=== PATIENT | female | born 1960 | race Caucasian/White ===

== ENCOUNTER → 2018-10-29 | Outpatient (CLI) | payer OTHER ==
--- NOTE | 2018-10-29 16:39 | 2DMMODE ---
[facility] [place] [address] 2 D/M-MODE ECHOCARDIOGRAM Name: NANCYKADEN Room #: [facility]#: [id number] ������������� Admission: 10/29/18 ������������� Attend Phys: Physician not on s Discharge: ��� ������������� ��� Date of : 56 Date of Service: 10/29/18 1638 �� Report #: [id number] �������� ��������������������������������������������[id number] THIS REPORT FOR: //name// APPROVED REPORT Study performed: 10/29/2018 14:55:18 EXAM: Comprehensive 2D, Doppler, and color-flow Echocardiogram Patient Location: Out-Patient Status: routine BSA: 2.27 HR: 87 bpm BP: 118/70 mmHg Rhythm: NSR Other Information Study Quality: Good Indications Nonischemic cardiomyopathy. Hx: Afib, ICD, EF of 25%, HTN, HLP. 2D Dimensions RVDd: 31.67 mm IVSd: 9.76 (7-11mm) LVDd: 45.61 mm PWd: 9.93 (7-11mm) Ascending Ao: 29.56 (22-36mm) LVDs: 34.77 (25-40mm) Aortic Root: 29.24 mm Volumes Left Atrial Volume (Systole) Single Plane 4CH: 49.09 mL Single Plane 2CH: 34.59 mL LA ESV Index: 20.00 mL/m2 Aortic Valve AoV Peak Sundeep.: 1.34 m/s AO Peak Gr.: 7.18 mmHg LVOT Max P.69 mmHg LVOT Max V: 0.82 m/s Mitral Valve E/A Ratio: 0.8 MV Decel. Time: 147.55 ms MV E Max Sundeep.: 0.71 m/s MV A Sundeep.: 0.94 m/s [facility] [address] [place] [address] 2 D/M-MODE ECHOCARDIOGRAM Name: KADEN CRUZ Room #: [facility]#: [id number] ������������� Admission: 10/29/18 ������������� Attend Phys: Physician not on s Discharge: ��� ������������� ��� Date of : 56 Date of Service: 10/29/18 1638 �� Report #: [id number] �������� ��������������������������������������������[id number] MV PHT: 42.79 ms IVRT: 86.51 ms Pulmonary Valve PV Peak Sundeep.: 1.03 m/s PV Peak Gr.: 4.27 mmHg Pulmonary Vein P Vein S: 0.58 m/s P Vein A: 0.26 m/s P Vein D: 0.37 m/s P Vein A Dur.: 100.3 msec P Vein S/D Ratio: 1.57 Tricuspid Valve TR Peak Sundeep.: 2.55 m/s RAP Estimate: 5.00 mmHg TR Peak Gr.: 26.05 mmHg PA Pressure: 31.00 mmHg Left Ventricle The left ventricle is normal size. There is normal left ventricular wall thickness. Left ventricular systolic function is low normal. LVEF is 50%. Mild diastolic dysfunction is present (impaired relaxation pattern). Right Ventricle The right ventricle is normal size. The right ventricular systolic function is normal. Device lead is present in the right ventricle. Atria The left atrium size is normal. The right atrium size is normal. Aortic Valve The aortic valve is normal in structure. No aortic regurgitation is present. There is no aortic valvular stenosis. Mitral Valve The mitral valve is normal in structure. Trace mitral regurgitation. Tricuspid Valve The tricuspid valve is normal in structure. Mild tricuspid regurgitation. Estimated PAP is 30-35mmHg. Pulmonic Valve The pulmonary valve is normal in structure. There is no pulmonic valvular regurgitation. [facility] [address] [place] [address] 2 D/M-MODE ECHOCARDIOGRAM Name: KADEN CRUZ Room #: REG [facility].#: [id number] ������������� Admission: 10/29/18 ������������� Attend Phys: Physician not on s Discharge: ��� ������������� ��� Date of : 56 Date of Service: 10/29/18 1638 �� Report #: [id number] �������� ��������������������������������������������[id number] [employer] The aortic root is normal in size. The ascending aorta is normal in size. IVC is normal in size and collapses >50% with inspiration. Pericardium Trivial amount of posterior pericardial fluid noted. <Conclusion> The left ventricle is normal size. Left ventricular systolic function is low normal. LVEF is 50%. Mild diastolic dysfunction is present (impaired relaxation pattern). The right ventricle is normal size. The left atrium size is normal. Device lead is present in the right ventricle. The aortic valve is normal in structure. Trace mitral regurgitation. Mild tricuspid regurgitation. Estimated PAP is 30-35mmHg. The aortic root is normal in size. Trivial amount of posterior pericardial fluid noted. ��������������������������������������������� <ELECTRONICALLY SIGNED> ���������������������������������������� By: Tay Mckenna MD, FACC ��������������������������������������������� 10/29/18 1638 1638 1638 Tay Mckenna MD, FACC /INF
== END ==
LOC: CV 07:27
DX: I07.1 Rheumatic tricuspid insufficiency (principal); I42.6 Alcoholic cardiomyopathy